=== PATIENT | female | born 1980 | race Two or more races ===

== ENCOUNTER 2019-07-03 11:22 | Emergency (ER) | payer BC ==
[~2019-07-03] VITALS: Ht 162.6 cm; Wt 150.0 kg
--- NOTE | 2019-07-03 12:09 | PHYS DOC ---
Adult General Chief Complaint Chief Complaint: VAGINAL BLEEDING [facility] HPI Patient is a 39 year old female who presents with vaginal bleeding abdominal pain is been ongoing since Wednesday. The patient's last menstrual period was 1219. Denies nausea, vomiting, diarrhea. Is wearing a brief due to the vaginal bleeding. [id number]. No OB care so far during this . Complete ROS were reviewed and found to be within normal limits, except as documented in the HPI Current Medications Current Medications Current Medications Medications (Trade) Dose Ordered Sig/Jena Start Time Stop Time Status Last Admin Dose Admin Ondansetron HCl (Zofran) 4 mg 1X ONCE 07/03/19 12:15 07/03/19 12:16 DC 07/03/19 12:30 4 MG Sodium Chloride 1,000 ml @ 1,000 mls/hr 1X ONCE 07/03/19 12:15 07/03/19 13:14 DC 07/03/19 12:28 1,000 MLS/HR Allergies Allergies Allergies Coded Allergies Type Severity Reaction Last Updated Verified No Known Drug Allergies 07/03/19 No Physical Exam Physical Exam Constitutional: Well developed, well nourished, no acute distress, non-toxic appearance. [] HENT: Normocephalic, atraumatic, bilateral external ears normal, oropharynx moist, no oral exudates, nose normal. [] Abdomen: Bowel sounds normal, soft, lower abd tenderness, no masses, no pulsatile masses. [] Neurologic: Alert and oriented X 3, normal motor function, normal sensory function, no focal deficits noted. [] Psychologic: Affect normal, judgement normal, mood normal. [] Current Patient Data Vital Signs Vital Signs Date Time Temp Pulse Resp B/P (MAP) Pulse Ox O2 Delivery O2 Flow Rate FiO2 07/03/19 11:34 98.6 65 18 112/70 (84) 100 Room Air 98.6 Lab Values Laboratory Tests Test 07/03/19 11:41 07/03/19 12:00 07/03/19 12:10 POC Urine HCG, Qualitative Hcg positive (Negative) Urine Collection Type Unknown Urine Color Yellow Urine Clarity Clear Urine pH 6.0 (<5.0-8.0) Urine Specific Leigh 1.020 (1.000-1.030) Urine Protein Negative mg/dL (NEG-TRACE) Urine Glucose (UA) Negative mg/dL (NEG) Urine Ketones (Stick) Negative mg/dL (NEG) Urine Blood Moderate (NEG) Urine Nitrite Negative (NEG) Urine Bilirubin Negative (NEG) Urine Urobilinogen Dipstick 1.0 mg/dL (0.2 mg/dL) Urine Leukocyte Esterase Small (NEG) Urine RBC >40 /HPF (0-2) Urine WBC 1-4 /HPF (0-4) Urine Squamous Epithelial Cells Mod /LPF Urine Bacteria 0 /HPF (0-FEW) Urine Mucus Marked /LPF White Blood Count 5.6 x10^3/uL (4.0-11.0) Red Blood Count 3.68 x10^6/uL (3.50-5.40) Hemoglobin 11.3 g/dL (12.0-15.5) L Hematocrit 32.9 % (36.0-47.0) L Mean Corpuscular Volume 90 fL (79-100) Mean Corpuscular Hemoglobin 31 pg (25-35) Mean Corpuscular Hemoglobin Concent 34 g/dL (31-37) Red Cell Distribution Width 13.5 % (11.5-14.5) Platelet Count 203 x10^3/uL (140-400) Neutrophils (%) (Auto) 62 % (31-73) Lymphocytes (%) (Auto) 22 % (24-48) L Monocytes (%) (Auto) 9 % (0-9) Eosinophils (%) (Auto) 6 % (0-3) H Basophils (%) (Auto) 0 % (0-3) Neutrophils # (Auto) 3.5 x10^3/uL (1.8-7.7) Lymphocytes # (Auto) 1.3 x10^3/uL (1.0-4.8) Monocytes # (Auto) 0.5 x10^3/uL (0.0-1.1) Eosinophils # (Auto) 0.3 x10^3/uL (0.0-0.7) Basophils # (Auto) 0.0 x10^3/uL (0.0-0.2) Maternal Serum HCG Beta Subunit 2882 mIU/mL (0-5) H Sodium Level 140 mmol/L (136-145) Potassium Level 4.1 mmol/L (3.5-5.1) Chloride Level 105 mmol/L (98-107) Carbon Dioxide Level 26 mmol/L (21-32) Anion Gap 9 (6-14) Blood Urea Nitrogen 7 mg/dL (7-20) Creatinine 0.6 mg/dL (0.6-1.0) Estimated GFR (Cockcroft-Gault) 111.9 BUN/Creatinine Ratio 12 (6-20) Glucose Level 95 mg/dL (70-99) Calcium Level 9.0 mg/dL (8.5-10.1) Total Bilirubin 0.7 mg/dL (0.2-1.0) Aspartate Amino Transferase (AST) 12 U/L (15-37) L Alanine Aminotransferase (ALT) 8 U/L (14-59) L Alkaline Phosphatase 57 U/L (46-116) Total Protein 7.3 g/dL (6.4-8.2) Albumin 3.6 g/dL (3.4-5.0) Albumin/Globulin Ratio 1.0 (1.0-1.7) Laboratory Tests 07/03/19 12:10 Laboratory Tests 07/03/19 12:10 EKG EKG [] Radiology/Procedures Radiology/Procedures []IMAGING REPORT Signed PATIENT: AZAR JAVIER ACCOUNT: [id number] : 1980 LOCATION: ER AGE: 39 SEX: F EXAM STATUS: REG ER ORD. PHYSICIAN: UCHE JANSEN APRN REASON: vaginal bleeding, abd pain in LMP 04/06 PROCEDURE: OB < 14 WKS ADDENDUM Addendum: There is a voice recognition error in the original report. The estimated gestational age is 9 weeks and 0 days and not 19 weeks. Electronically signed by: Jen Juarez MD (07/03/2019 2:09 PM) [id number] DICTATED AND SIGNED BY: JEN JUAREZ MD DATE: 07/03/19 1409 CC: UCHE JANSEN APRN; NO PCP ~ INDICATION: Vaginal bleeding and . COMPARISON: None. TECHNIQUE: Grayscale and color ultrasound images uterus and adnexa. Transabdominal images obtained. FINDINGS: Uterus: 122 x 59 x 86 mm. Intrauterine gestational sac is identified with a pole. There is a hypoechoic region adjacent measuring approximately 13 x 27 mm. crown-rump length is 24 mm. No definite heartbeat is seen. Vascular flow is seen to the right maternal ovary. Right Ovary: 59 x 70 x 48 mm. 45 x 38 mm cyst of right ovary. Left ovary is suggestive by bowel gas. IMPRESSION: * Intrauterine gestational sac is identified with a pole with estimated gestational age of 19 weeks and 0 days. No heartbeat is seen. This raises the concern for early failure. * Hypoechoic region adjacent to the gestational sac likely from subchorionic hematoma. * Right ovarian cyst. Electronically signed by: Jen Juarez MD (07/03/2019 1:59 PM) [id number] DICTATED and SIGNED BY: JEN JUAREZ MD DATE: 07/03/19 4728 Course & Med Decision Making Course & Med Decision Making Pertinent Labs and Imaging studies reviewed. (See chart for details) We will get labs and ultrasound give supportive care. IMPRESSION: * Intrauterine gestational sac is identified with a pole with estimated gestational age of 19 weeks and 0 days. No heartbeat is seen. This raises the concern for early failure. * Hypoechoic region adjacent to the gestational sac likely from subchorionic hematoma. * Right ovarian cyst. Electronically signed by: Jen Juarez MD (07/03/2019 1:59 PM) [id number] Dragon Disclaimer Dragon Disclaimer This electronic medical record was generated, in whole or in part, using a voice recognition dictation system. Departure Departure Impression: Primary Impression: Threatened miscarriage in early Disposition: 01 HOME, SELF-CARE Condition: STABLE Referrals: NO PCP (PCP) LUCIA LANGSTON MD Patient Instructions: Threatened Miscarriage Additional Instructions: Thank you for visiting [facility]. We appreciate you trusting us with your care. If any additional problems come up don't hesitate to return to visit us. Please follow up with your primary care provider so they can plan additional care if needed and know about the problem that you had. If symptoms worsen come back to the Emergency Department. Any concerning symptoms that start such as chest pain, shortness of air, weakness or numbness on one side of the body, running high fevers or any other concerning symptoms return to the ER. Please follow-up with OB in 3 days to have your beta hCG levels trended. Your HCG is 2882 today. You are O+ UCHE JANSEN APRN Jul 03, 2019 12:09
[2019-07-03] MEDS ORDERED: IV NORMAL SALINE 1000ML BAG 1,000 ML IV ONE (12:15)
[2019-07-03] MEDS ORDERED: ONDANSETRON PF 4 MG/2 ML VIAL. IV ONE (12:15)
[2019-07-03 12:35] LABS: BASO % 0 % (0-3); EOS # 0.3 x10^3/uL (0.0-0.7); EOS % 6 % (0-3); HEMATOCRIT 32.9 % (36.0-47.0); HEMOGLOBIN 11.3 g/dL (12.0-15.5); LYMPH # 1.3 x10^3/uL (1.0-4.8); LYMPH % 22 % (24-48); MEAN CORPUSCULAR HEMOGLOBIN 31 pg (25-35); MEAN CORPUSCULAR HGB CONC 34 g/dL (31-37); MEAN CORPUSCULAR VOLUME 90 fL (79-100); MONO # 0.5 x10^3/uL (0.0-1.1); MONO % 9 % (0-9); NEUT # 3.5 x10^3/uL (1.8-7.7); NEUT % 62 % (31-73); PLATELET COUNT 203 x10^3/uL (140-400); RED BLOOD COUNT 3.68 x10^6/uL (3.50-5.40); RED CELL DISTRIBUTION WIDTH 13.5 % (11.5-14.5); WHITE BLOOD COUNT 5.6 x10^3/uL (4.0-11.0)
[2019-07-03 12:36] LABS: BILIRUBIN,URINE NEGATIVE (NEG); CLARITY,URINE CLEAR; COLOR,URINE YELLOW; NITRITE,URINE NEGATIVE (NEG); PROTEIN,URINE NEGATIVE (NEG-TRACE)
[2019-07-03 12:41] LABS: CREATININE 0.6 mg/dL (0.6-1.0); GFR 111.9; POTASSIUM 4.1 mmol/L (3.5-5.1)
[2019-07-03 12:46] LABS: ALBUMIN 3.6 g/dL (3.4-5.0); TOTAL BILIRUBIN 0.7 mg/dL (0.2-1.0); TOTAL PROTEIN 7.3 g/dL (6.4-8.2)
[2019-07-03 12:46] LABS: SQUAMOUS EPITHELIAL CELL,UR MOD /LPF
[2019-07-03 12:47] LABS: BACTERIA,URINE 0 /HPF (0-FEW); RBC,URINE >40 /HPF (0-2)
--- NOTE | 2019-07-03 14:02 | RAD ---
INDICATION: Vaginal bleeding and . COMPARISON: None. TECHNIQUE: Grayscale and color ultrasound images uterus and adnexa. Transabdominal images obtained. FINDINGS: Uterus: 122 x 59 x 86 mm. Intrauterine gestational sac is identified with a pole. There is a hypoechoic region adjacent measuring approximately 13 x 27 mm. crown-rump length is 24 mm. No definite heartbeat is seen. Vascular flow is seen to the right maternal ovary. Right Ovary: 59 x 70 x 48 mm. 45 x 38 mm cyst of right ovary. Left ovary is suggestive by bowel gas. IMPRESSION: * Intrauterine gestational sac is identified with a pole with estimated gestational age of 19 weeks and 0 days. No heartbeat is seen. This raises the concern for early failure. * Hypoechoic region adjacent to the gestational sac likely from subchorionic hematoma. * Right ovarian cyst. Electronically signed by: Jesus Ponce MD (07/03/2019 1:59 PM) [id number]
[2019-07-03 14:43] VITALS: BP 99/63
== END 2019-07-03 15:12 | disposition home or self-care (01) ==
LOC: ER 11:22
DX: O20.0 Threatened abortion (principal); O34.82 Maternal care for other abnormalities of pelvic organs, second trimester; N83.201 Unspecified ovarian cyst, right side; Z3A.19 19 weeks gestation of pregnancy
CPT/HCPCS: 36415; 76801; 80053; 81001; 81025; 84702; 85025; 86900; 86901; 87086; 96374; 99285; J2405; J7030

== ENCOUNTER 2019-08-10 15:47 | Emergency (ER) | payer BC ==
[~2019-08-10] VITALS: Ht 167.6 cm; Wt 64.0 kg
[2019-08-10 16:54] LABS: BASO % 0 % (0-3); EOS # 0.4 x10^3/uL (0.0-0.7); EOS % 7 % (0-3); HEMATOCRIT 35.4 % (36.0-47.0); LYMPH # 1.6 x10^3/uL (1.0-4.8); LYMPH % 28 % (24-48); MEAN CORPUSCULAR HEMOGLOBIN 30 pg (25-35); MEAN CORPUSCULAR HGB CONC 34 g/dL (31-37); MEAN CORPUSCULAR VOLUME 90 fL (79-100); MONO # 0.5 x10^3/uL (0.0-1.1); MONO % 9 % (0-9); NEUT % 55 % (31-73); PLATELET COUNT 191 x10^3/uL (140-400); RED BLOOD COUNT 3.95 x10^6/uL (3.50-5.40); RED CELL DISTRIBUTION WIDTH 13.6 % (11.5-14.5); WHITE BLOOD COUNT 5.5 x10^3/uL (4.0-11.0)
[2019-08-10 16:55] LABS: BILIRUBIN,URINE NEGATIVE (NEG); CLARITY,URINE CLEAR; NITRITE,URINE NEGATIVE (NEG); PH,URINE 6.5 (<5.0-8.0); PROTEIN,URINE NEGATIVE (NEG-TRACE); UROBILINOGEN,URINE 0.2 mg/dL (0.2 mg/dL)
[2019-08-10 17:03] LABS: COLOR,URINE STRAW
[2019-08-10 17:04] LABS: CALCIUM 8.7 mg/dL (8.5-10.1); CREATININE 0.5 mg/dL (0.6-1.0); GFR 138.1; POTASSIUM 3.6 mmol/L (3.5-5.1)
[2019-08-10 17:07] LABS: BACTERIA,URINE FEW /HPF (0-FEW); SQUAMOUS EPITHELIAL CELL,UR FEW /LPF; WBC,URINE 0 /HPF (0-4)
[2019-08-10 17:10] LABS: ALBUMIN 3.8 g/dL (3.4-5.0); TOTAL BILIRUBIN 0.5 mg/dL (0.2-1.0); TOTAL PROTEIN 7.5 g/dL (6.4-8.2)
--- NOTE | 2019-08-10 17:12 | PHYS DOC ---
Past Medical History Past Medical History: No Pertinent History Past Surgical History: No Surgical History Smoking Status: Never Smoker Alcohol Use: None General Adult EDM: Chief Complaint: VAGINAL BLEEDING HPI: HPI: Patient is a 39 year old FEMALE who presents with states for most the whole she has had bleeding that is scant. She states she only has to wear 1 pad a day. She denies dysuria, abdominal pain, nausea, vomiting, fever, back pain, abnormal vaginal discharge, dizziness, headache. She does see a OB doctor but she cannot read her the name of the OB doctor or the clinics name. She states OB doctor just told her to go to the emergency room when bleeding occurs. This is the patient's eighth baby with no miscarriages. She denies any pain. Review of Systems: Review of Systems: : Denies dysuria. Vaginal bleeding[] Heart Score: Risk Factors: Risk Factors: DM, Current or recent (<one month) smoker, HTN, HLP, family history of CAD, obesity. Risk Scores: Score 0 - 3: 2.5% MACE over next 6 weeks - Discharge Home Score 4 - 6: 20.3% MACE over next 6 weeks - Admit for Clinical Observation Score 7 - 10: 72.7% MACE over next 6 weeks - Early Invasive Strategies Allergies: Allergies: Allergies Coded Allergies Type Severity Reaction Last Updated Verified No Known Drug Allergies 07/03/19 No Physical Exam: PE: Constitutional: Well developed, well nourished, no acute distress, non-toxic appearance. [] HENT: Normocephalic, atraumatic, bilateral external ears normal, oropharynx moist, no oral exudates, nose normal. [] Eyes: PERRLA, EOMI, conjunctiva normal, no discharge. [] Neck: Normal range of motion, no tenderness, supple, no stridor. [] Cardiovascular:Heart rate regular rhythm, no murmur [] Lungs & Thorax: Bilateral breath sounds clear to auscultation [] Abdomen: Bowel sounds normal, soft, no tenderness, no masses, no pulsatile masses. [] Skin: Warm, dry, no erythema, no rash. [] Back: No tenderness, no CVA tenderness. [] Extremities: No tenderness, no cyanosis, no clubbing, ROM intact, no edema. [] Neurologic: Alert and oriented X 3, normal motor function, normal sensory function, no focal deficits noted. [] Psychologic: Affect normal, judgement normal, mood normal. [] Normal Physical Exam Current Patient Data: Labs: Laboratory Tests Test 08/10/19 16:25 White Blood Count 5.5 x10^3/uL (4.0-11.0) Red Blood Count 3.95 x10^6/uL (3.50-5.40) Hemoglobin 12.0 g/dL (12.0-15.5) Hematocrit 35.4 % (36.0-47.0) L Mean Corpuscular Volume 90 fL (79-100) Mean Corpuscular Hemoglobin 30 pg (25-35) Mean Corpuscular Hemoglobin Concent 34 g/dL (31-37) Red Cell Distribution Width 13.6 % (11.5-14.5) Platelet Count 191 x10^3/uL (140-400) Neutrophils (%) (Auto) 55 % (31-73) Lymphocytes (%) (Auto) 28 % (24-48) Monocytes (%) (Auto) 9 % (0-9) Eosinophils (%) (Auto) 7 % (0-3) H Basophils (%) (Auto) 0 % (0-3) Neutrophils # (Auto) 3.0 x10^3/uL (1.8-7.7) Lymphocytes # (Auto) 1.6 x10^3/uL (1.0-4.8) Monocytes # (Auto) 0.5 x10^3/uL (0.0-1.1) Eosinophils # (Auto) 0.4 x10^3/uL (0.0-0.7) Basophils # (Auto) 0.0 x10^3/uL (0.0-0.2) Sodium Level 141 mmol/L (136-145) Potassium Level 3.6 mmol/L (3.5-5.1) Chloride Level 107 mmol/L (98-107) Carbon Dioxide Level 23 mmol/L (21-32) Anion Gap 11 (6-14) Blood Urea Nitrogen 8 mg/dL (7-20) Creatinine 0.5 mg/dL (0.6-1.0) L Estimated GFR (Cockcroft-Gault) 138.1 BUN/Creatinine Ratio 16 (6-20) Glucose Level 94 mg/dL (70-99) Calcium Level 8.7 mg/dL (8.5-10.1) Total Bilirubin Pending Aspartate Amino Transferase (AST) Pending Alanine Aminotransferase (ALT) Pending Alkaline Phosphatase Pending Total Protein Pending Albumin Pending Albumin/Globulin Ratio Pending Laboratory Tests 08/10/19 16:25 Laboratory Tests 08/10/19 16:25 EKG: EKG: [] Radiology/Procedures: Radiology/Procedures: [] Impression: [facility] [address] [place] [address] IMAGING REPORT Signed PATIENT: AZAR JAVIER ACCOUNT: [id number] : 1980 LOCATION: ER AGE: 39 SEX: F EXAM STATUS: REG ER ORD. PHYSICIAN: MANUELITO ENG APRN REASON: vaginal bleeding in PROCEDURE: PREG MORE THAN OR EQ TO 14 WKS PREG MORE THAN OR EQ TO 14 WKS History: Vaginal bleeding in Comparison: July 03, 2019 Findings: Multiple transvaginal sonographic images of the pelvis are submitted. There is a single intrauterine gestational sac and identifiable pole although again there is no demonstrable cardiac activity on M-mode analysis or color Doppler imaging. [place]-rump length measurement of 2.15 cm corresponds with 8 weeks 6 days. Adjusted ultrasound age is 8 weeks 6 days with estimated delivery date of 03/15/2020 (previously 9 weeks 0 days with estimated delivery date 02/05/2020). LMP age 18 weeks 3 days with estimated delivery date of 01/08/2020. There are again foci of hypoechogenicity near gestational sac likely due to sequela of subchorionic hemorrhage, largest focus about 3.8 cm in size. Uterus measured about 10.5 x 7.7 cm. Left ovary measured 4.9 x 3.6 x 3.4 cm. There is a hypoechoic lesion of the left ovary about 3.9 x 2.7 x 2.7 cm with increased through transmission. There is normal low resistance vascularity of the left ovary. Right ovary measured 3.4 x 1.9 x 2.6 m. There is a focus of hypoechogenicity of the right ovary about 1.9 x 1.2 x 1.5 cm in size. There is normal color flow and low resistance vascularity of the right ovary. Cervix measured 4 cm in length. Impression: 1. There is again intrauterine gestational sac with identifiable pole although again no demonstrable cardiac activity, evidence of demise. There are foci of subchorionic hemorrhage about the gestational sac. 2. There is again left ovarian cyst, also small right ovarian cyst. Electronically signed by: Compa Camilo MD (08/10/2019 6:28 PM) [facility] DICTATED and SIGNED BY: COMPA CAMILO MD DATE: 08/10/191827 Course & Med Decision Making: Course & Med Decision Making Pertinent Labs and Imaging studies reviewed. (See chart for details) Abdomen is soft andnontender. Skin pink warm and dry. Alert and oriented. No extremity edema. Normal Physical Exam. Vital signs normal. Patient is O+. Pelvic Exam: Fish Bait Picker present, Cervical OS closed Abdomen: Nontender External Genitalia: Normal Skin Speculum: Normal vaginal mucosa, scant bloody cervical discharge Bimanual: No adnexal masses or tenderness, No CMT 07/03/19 US showed no heart tone. Todays US shows Impression: 1. There is again intrauterine gestational sac with identifiable pole although again no demonstrable cardiac activity, evidence of demise. There are foci of subchorionic hemorrhage about the gestational sac. 2. There is again left ovarian cyst, also small right ovarian cyst. Beta Serum has significantly dropped from 07/02. I have spoken with Dr Dutton who states she needs to follow up with her OB as soon as possible. He states nothing need to be done emergent. [] Viv Disclaimer: Viv Disclaimer: This electronic medical record was generated, in whole or in part, using a voice recognition dictation system. Departure Departure Impression: Primary Impression: Incomplete miscarriage Disposition: HOME, SELF-CARE Condition: STABLE Referrals: NO PCP (PCP) Patient Instructions: Incomplete Miscarriage Additional Instructions: Follow up wit your doctor as soon as possible. You have miscarried. If you begin having severe pain or going through more than 1 pad a hour it is important to come back to the emergency room. Call your OB doctor tomorrow and tell them you have miscarried and need to be seen. MANUELITO ENG APRN Aug 10, 2019 17:12
--- NOTE | 2019-08-10 18:31 | RAD ---
PREG MORE THAN OR EQ TO 14 WKS History: Vaginal bleeding in Comparison: July 03, 2019 Findings: Multiple transvaginal sonographic images of the pelvis are submitted. There is a single intrauterine gestational sac and identifiable pole although again there is no demonstrable cardiac activity on M-mode analysis or color Doppler imaging. [place]-rump length measurement of 2.15 cm corresponds with 8 weeks 6 days. Adjusted ultrasound age is 8 weeks 6 days with estimated delivery date of 03/15/2020 (previously 9 weeks 0 days with estimated delivery date 02/05/2020). LMP age 18 weeks 3 days with estimated delivery date of 01/08/2020. There are again foci of hypoechogenicity near gestational sac likely due to sequela of subchorionic hemorrhage, largest focus about 3.8 cm in size. Uterus measured about 10.5 x 7.7 cm. Left ovary measured 4.9 x 3.6 x 3.4 cm. There is a hypoechoic lesion of the left ovary about 3.9 x 2.7 x 2.7 cm with increased through transmission. There is normal low resistance vascularity of the left ovary. Right ovary measured 3.4 x 1.9 x 2.6 m. There is a focus of hypoechogenicity of the right ovary about 1.9 x 1.2 x 1.5 cm in size. There is normal color flow and low resistance vascularity of the right ovary. Cervix measured 4 cm in length. Impression: 1. There is again intrauterine gestational sac with identifiable pole although again no demonstrable cardiac activity, evidence of demise. There are foci of subchorionic hemorrhage about the gestational sac. 2. There is again left ovarian cyst, also small right ovarian cyst. Electronically signed by: Guille Cheng MD (08/10/2019 6:28 PM) [facility]
[2019-08-10 18:37] VITALS: BP 100/59
== END 2019-08-10 19:13 | disposition home or self-care (01) ==
LOC: ER 15:47
DX: O03.4 Incomplete spontaneous abortion without complication (principal)
CPT/HCPCS: 36415; 76805; 80053; 81001; 84702; 85025; 99284-25

== ENCOUNTER 2020-04-18 00:05 | Observation (INO) | payer SELFPAY ==
[~2020-04-18] VITALS: Ht 157.5 cm; Wt 61.3 kg
[2020-04-18] VITALS (13 sets, daily range): BP systolic 78–121; BP diastolic 41–61
[2020-04-18 00:49] LABS: BASO # 0.1 x10^3/uL (0.0-0.2); BASO % 1 % (0-3); EOS # 0.4 x10^3/uL (0.0-0.7); EOS % 4 % (0-3); HEMATOCRIT 28.6 % (36.0-47.0); HEMOGLOBIN 9.5 g/dL (12.0-15.5); LYMPH # 2.7 x10^3/uL (1.0-4.8); LYMPH % 26 % (24-48); MEAN CORPUSCULAR HEMOGLOBIN 30 pg (25-35); MEAN CORPUSCULAR HGB CONC 33 g/dL (31-37); MEAN CORPUSCULAR VOLUME 91 fL (79-100); MONO # 0.8 x10^3/uL (0.0-1.1); MONO % 8 % (0-9); NEUT # 6.2 x10^3/uL (1.8-7.7); NEUT % 62 % (31-73); RED BLOOD COUNT 3.15 x10^6/uL (3.50-5.40); RED CELL DISTRIBUTION WIDTH 13.9 % (11.5-14.5); WHITE BLOOD COUNT 10.1 x10^3/uL (4.0-11.0)
[2020-04-18 00:56] LABS: CALCIUM 8.6 mg/dL (8.5-10.1); CREATININE 0.8 mg/dL (0.6-1.0); GFR 80.3; POTASSIUM 3.1 mmol/L (3.5-5.1)
[2020-04-18] MEDS ORDERED: IV NORMAL SALINE 1000ML BAG 1,000 ML IV ONE ×2 (01:00→03:15)
[2020-04-18 01:01] LABS: ALBUMIN 3.4 g/dL (3.4-5.0); TOTAL BILIRUBIN 0.4 mg/dL (0.2-1.0); TOTAL PROTEIN 6.8 g/dL (6.4-8.2)
[2020-04-18 01:18] LABS: PLATELET COUNT 228 x10^3/uL (140-400)
--- NOTE | 2020-04-18 02:18 | RAD ---
ADDENDUM #1 Addendum: In the body of the report the statement "crown-rump length is identified" should state pole is not visualized. End of addendum: Electronically signed by: Jade Babin MD (04/18/2020 6:27 AM) [facility] ORIGINAL REPORT US PRE HYSTEROSALPINGOGRAM: 04/18/2020 1:59 AM INDICATION: 39 years old Female. Vaginal bleeding. COMPARISON: None. TECHNIQUE: Transabdominal and transvaginal sonographic evaluation of the pelvis was performed. Yi elian, color Doppler and spectral waveform analysis were utilized. FINDINGS: UTERUS: No gestational sac. [place]-rump length is identified. Size: 9.3 x 5.1 cm. Masses: None. Endometrium: 26 mm. No suspicious vascularity is identified. RIGHT OVARY: 3.1 x 2.1 x 1.0 cm. Ovary is normal in appearance. LEFT OVARY: 3.2 x 2.0 x 1.7 cm. Ovary is normal in appearance. Arterial and venous waveform are identified within the ovaries bilaterally at the time of imaging. FREE FLUID: There is a trace amount of free fluid within the pelvis, physiologic in amount. URINARY BLADDER: Unremarkable. IMPRESSION: No intrauterine gestation is identified. Correlate with beta-hCG to assess for early versus failure or ectopic . Perfusion is noted to the ovaries bilaterally at the time of imaging. Electronically signed by: Jade Babin MD (04/18/2020 2:16 AM) [facility]
[2020-04-18] MEDS ORDERED: MORPHINE SULFATE 2 MG/ML VIAL. IV PRN ×2 (03:45→10:45)
[2020-04-18] MEDS ORDERED: ONDANSETRON PF 4 MG/2 ML VIAL. IV PRN ×2 (03:45→10:45)
--- NOTE | 2020-04-18 03:48 | PHYS DOC ---
Past Medical History Past Medical History: No Pertinent History Past Surgical History: No Surgical History Smoking Status: Never Smoker Alcohol Use: None Adult General Chief Complaint Chief Complaint: VAGINAL BLEEDING HPI HPI Patient is a 39 year old 3 months by last menstrual period who presents emergency department for new onset of vaginal bleeding. Patient states approximate 2 hours prior to arrival she noted new onset of suprapubic abdominal pain and tenderness. Shortly afterwards a large amount of vaginal bleeding. Did complain of some weakness but denies any dizziness, lightheadedness, fever, chills, chest pain or shortness of breath. Denies any history of similar symptoms. Denies any issues with her prior pregnancies. Patient speaks Swahili and a respiratory assistant was provided Review of Systems Review of Systems Constitutional: Denies fever or chills [] Eyes: Denies change in visual acuity, redness, or eye pain [] HENT: Denies nasal congestion or sore throat [] Respiratory: Denies cough or shortness of breath [] Cardiovascular: No additional information not addressed in HPI [] GI: Denies abdominal pain, nausea, vomiting, bloody stools or diarrhea [] : Denies dysuria or hematuria [] Musculoskeletal: Denies back pain or joint pain [] Integument: Denies rash or skin lesions [] Neurologic: Denies headache, focal weakness or sensory changes [] Endocrine: Denies polyuria or polydipsia [] All other systems were reviewed and found to be within normal limits, except as documented in this note. Current Medications Current Medications Current Medications Medications (Trade) Dose Ordered Sig/Jena Start Time Stop Time Status Last Admin Dose Admin Morphine Sulfate (Morphine Sulfate) 2 mg PRN Q2HR PRN 04/18/20 03:45 04/19/20 03:44 UNV Ondansetron HCl (Zofran) 4 mg PRN Q8HRS PRN 04/18/20 03:45 04/19/20 03:44 UNV Sodium Chloride 1,000 ml @ 1,000 mls/hr 1X ONCE 04/18/20 03:15 04/18/20 04:14 04/18/20 03:00 1,000 MLS/HR Allergies Allergies Allergies Coded Allergies Type Severity Reaction Last Updated Verified No Known Drug Allergies 07/03/19 No Physical Exam Physical Exam Constitutional: Well developed, well nourished, no acute distress, non-toxic appearance. [] HENT: Normocephalic, atraumatic, bilateral external ears normal, oropharynx moist, no oral exudates, nose normal. [] Eyes: PERRLA, EOMI, conjunctiva normal, no discharge. [] Neck: Normal range of motion, no tenderness, supple, no stridor. [] Cardiovascular:Heart rate regular rhythm, no murmur [] Lungs & Thorax: Bilateral breath sounds clear to auscultation [] Abdomen: Bowel sounds normal, soft, no tenderness, no masses, no pulsatile masses. [] Skin: Warm, dry, no erythema, no rash. [] Back: No tenderness, no CVA tenderness. [] Extremities: No tenderness, no cyanosis, no clubbing, ROM intact, no edema. [] Neurologic: Alert and oriented X 3, normal motor function, normal sensory function, no focal deficits noted. [] Psychologic: Affect normal, judgement normal, mood normal. [] Current Patient Data Vital Signs Vital Signs Date Time Temp Pulse Resp B/P (MAP) Pulse Ox O2 Delivery O2 Flow Rate FiO2 04/18/20 00:45 98.0 94 24 93/65 (74) 98 Nasal Cannula 3.0 98.0 Lab Values Laboratory Tests Test 04/18/20 00:20 White Blood Count 10.1 x10^3/uL (4.0-11.0) Red Blood Count 3.15 x10^6/uL (3.50-5.40) L Hemoglobin 9.5 g/dL (12.0-15.5) L Hematocrit 28.6 % (36.0-47.0) L Mean Corpuscular Volume 91 fL (79-100) Mean Corpuscular Hemoglobin 30 pg (25-35) Mean Corpuscular Hemoglobin Concent 33 g/dL (31-37) Red Cell Distribution Width 13.9 % (11.5-14.5) Platelet Count 228 x10^3/uL (140-400) Neutrophils (%) (Auto) 62 % (31-73) Lymphocytes (%) (Auto) 26 % (24-48) Monocytes (%) (Auto) 8 % (0-9) Eosinophils (%) (Auto) 4 % (0-3) H Basophils (%) (Auto) 1 % (0-3) Neutrophils # (Auto) 6.2 x10^3/uL (1.8-7.7) Lymphocytes # (Auto) 2.7 x10^3/uL (1.0-4.8) Monocytes # (Auto) 0.8 x10^3/uL (0.0-1.1) Eosinophils # (Auto) 0.4 x10^3/uL (0.0-0.7) Basophils # (Auto) 0.1 x10^3/uL (0.0-0.2) Maternal Serum HCG Beta Subunit 4872 mIU/mL (0-5) H Sodium Level 137 mmol/L (136-145) Potassium Level 3.1 mmol/L (3.5-5.1) L Chloride Level 104 mmol/L (98-107) Carbon Dioxide Level 20 mmol/L (21-32) L Anion Gap 13 (6-14) Blood Urea Nitrogen 10 mg/dL (7-20) Creatinine 0.8 mg/dL (0.6-1.0) Estimated GFR (Cockcroft-Gault) 80.3 BUN/Creatinine Ratio 13 (6-20) Glucose Level 184 mg/dL (70-99) H Calcium Level 8.6 mg/dL (8.5-10.1) Total Bilirubin 0.4 mg/dL (0.2-1.0) Aspartate Amino Transferase (AST) 19 U/L (15-37) Alanine Aminotransferase (ALT) 15 U/L (14-59) Alkaline Phosphatase 43 U/L (46-116) L Total Protein 6.8 g/dL (6.4-8.2) Albumin 3.4 g/dL (3.4-5.0) Albumin/Globulin Ratio 1.0 (1.0-1.7) Laboratory Tests 04/18/20 00:20 Laboratory Tests 04/18/20 00:20 EKG EKG [] Radiology/Procedures Radiology/Procedures [] Course & Med Decision Making Course & Med Decision Making Pertinent Labs and Imaging studies reviewed. (See chart for details) 31-year-old female presents emergency department with acute onset of vaginal bleeding likely secondary to spontaneous . Pelvic exam was performed which did demonstrate a small cervical bleed without a other evidence of bleeding. Appears to be at this time. Will obtain basic labs with a CBC to make sure there is no acute anemia as well as obtain an ultrasound to look for retained products of conception 0340 -labs do demonstrate any acute anemia approximately 9 but it is unknown what the patient's baseline is. Patient also noted to be hypotensive since she arrived was given 2 L of normal saline. Concern for considerable ongoing hemorrhage although most of it still appears to have been improved. At this time the patient is stable at this time will plan to admit the patient to the labor and delivery floor Dragon Disclaimer Dragon Disclaimer This electronic medical record was generated, in whole or in part, using a voice recognition dictation system. Departure Departure Impression: Primary Impression: Spontaneous Disposition: ADMITTED INPT THIS HOSP Condition: GUARDED Referrals: NO PCP (PCP) ROMEO RAMIREZ MD Apr 18, 2020 03:48
[2020-04-18 06:11] LABS: RED BLOOD COUNT 2.2 x10^6/uL (3.50-5.40); RED CELL DISTRIBUTION WIDTH 13.8 % (11.5-14.5); WHITE BLOOD COUNT 13.4 x10^3/uL (4.0-11.0)
[2020-04-18 06:16] LABS: HEMATOCRIT 19.8 % (36.0-47.0); HEMOGLOBIN 6.6 g/dL (12.0-15.5)
--- NOTE | 2020-04-18 10:34 | PDOC ---
GENERAL General: 39 yrs old lady admitted for with Bleeding Lmp ? probably 2 months VITAL SIGNS Vital Signs/I&O: Vital Signs Date Time Temp Pulse Resp B/P (MAP) Pulse Ox O2 Delivery O2 Flow Rate FiO2 04/18/20 08:00 Room Air 16.0 04/18/20 07:23 98.8 78 18 91/55 (67) 96 98.8 I & O 04/17/20 04/17/20 04/18/20 15:00 23:00 07:00 Intake Total 1000 ml Balance 1000 ml ALLERGIES Allergies: Allergies Coded Allergies Type Severity Reaction Last Updated Verified No Known Drug Allergies 07/03/19 No MEDS Medications: Current Medications Medications (Trade) Dose Ordered Sig/Jena Route PRN Reason Start Time Stop Time Status Last Admin Dose Admin Sodium Chloride 1,000 ml @ 1,000 mls/hr 1X ONCE IV 04/18/20 01:00 04/18/20 01:59 DC 04/18/20 00:38 Sodium Chloride 1,000 ml @ 1,000 mls/hr 1X ONCE IV 04/18/20 03:15 04/18/20 04:14 DC 04/18/20 03:00 LAB Lab: Laboratory Tests Test 04/18/20 00:20 04/18/20 05:49 White Blood Count 10.1 x10^3/uL (4.0-11.0) 13.4 x10^3/uL (4.0-11.0) H Red Blood Count 3.15 x10^6/uL (3.50-5.40) L 2.20 x10^6/uL (3.50-5.40) L Hemoglobin 9.5 g/dL (12.0-15.5) L 6.6 g/dL (12.0-15.5) *L Hematocrit 28.6 % (36.0-47.0) L 19.8 % (36.0-47.0) *L Mean Corpuscular Volume 91 fL (79-100) 90 fL (79-100) Mean Corpuscular Hemoglobin 30 pg (25-35) 30 pg (25-35) Mean Corpuscular Hemoglobin Concent 33 g/dL (31-37) 33 g/dL (31-37) Red Cell Distribution Width 13.9 % (11.5-14.5) 13.8 % (11.5-14.5) Platelet Count 228 x10^3/uL (140-400) 163 x10^3/uL (140-400) Neutrophils (%) (Auto) 62 % (31-73) Lymphocytes (%) (Auto) 26 % (24-48) Monocytes (%) (Auto) 8 % (0-9) Eosinophils (%) (Auto) 4 % (0-3) H Basophils (%) (Auto) 1 % (0-3) Neutrophils # (Auto) 6.2 x10^3/uL (1.8-7.7) Lymphocytes # (Auto) 2.7 x10^3/uL (1.0-4.8) Monocytes # (Auto) 0.8 x10^3/uL (0.0-1.1) Eosinophils # (Auto) 0.4 x10^3/uL (0.0-0.7) Basophils # (Auto) 0.1 x10^3/uL (0.0-0.2) Maternal Serum HCG Beta Subunit 4872 mIU/mL (0-5) H Sodium Level 137 mmol/L (136-145) Potassium Level 3.1 mmol/L (3.5-5.1) L Chloride Level 104 mmol/L (98-107) Carbon Dioxide Level 20 mmol/L (21-32) L Anion Gap 13 (6-14) Blood Urea Nitrogen 10 mg/dL (7-20) Creatinine 0.8 mg/dL (0.6-1.0) Estimated GFR (Cockcroft-Gault) 80.3 BUN/Creatinine Ratio 13 (6-20) Glucose Level 184 mg/dL (70-99) H Calcium Level 8.6 mg/dL (8.5-10.1) Total Bilirubin 0.4 mg/dL (0.2-1.0) Aspartate Amino Transferase (AST) 19 U/L (15-37) Alanine Aminotransferase (ALT) 15 U/L (14-59) Alkaline Phosphatase 43 U/L (46-116) L Total Protein 6.8 g/dL (6.4-8.2) Albumin 3.4 g/dL (3.4-5.0) Albumin/Globulin Ratio 1.0 (1.0-1.7) Laboratory Tests 04/18/20 00:20 04/18/20 05:49 Laboratory Tests 04/18/20 00:20 ASSESSMENT & PLAN A&P 39 yrs old lady admitted for with Bleeding. Vital signs stable. First trimester . Could not get a good history due to Language Barrier. Pelvic exam shows Cervix still open. Bleeding Brisk. Possible retained placental tissues. Explained to the Family about Incomplete and Patient needs D&C Suction Curettage. Patient willing for Surgery. Hb 6.6 Receiving BT now. Will proceed with Surgery. Justifications for Admission Other Justification LUCIA LANGSTON MD Apr 18, 2020 10:34
--- NOTE | 2020-04-18 10:44 | HP ---
ADMIT DATE: 04/18/2020 CHIEF COMPLAINT AND HISTORY OF PRESENT ILLNESS: This patient is a 39-year-old female, who is 9, para 8, came into the Emergency Room because of with excessive bleeding and passing clots. The patient was seen by ER physician and the patient was admitted through the ER because of with bleeding associated with abdominal cramps and for further treatment. PHYSICAL EXAMINATION: VITAL SIGNS: Being stable. HEAD, EYES, NOSE, THROAT: Within normal limits. LUNGS: Clear. HEART: Sounds regular sinus rhythm. ABDOMEN: Soft, tenderness in the pelvic area. PELVIC: Shows external genitalia being normal and the cervical external os is open. On bimanual exam, uterus feels tender, no adnexal masses are felt. There is brisk bleeding with the pelvic exam and also the patient has passed the clots. Her hemoglobin has been 6.6 this morning. Two units of blood transfusions will be given at this time. DIAGNOSES: 9, para 8; incomplete . PLAN: D and C, suction curettage. The above surgical procedure has been explained to the patient through the state pilot because of the language barrier problem. The patient is willing for the operation at the present time. LUCIA LANGSTON MD DR: TERESA/christina JOB#: [id number] / [id number]
[2020-04-18] MEDS ORDERED: fentaNYL PF VIAL 100 MCG/2 ML VIAL IV PRN ×2 (10:45)
[2020-04-18] MEDS ORDERED: LIDOCAINE 1% PF 2 ML VIAL. ID PRN (10:45)
[2020-04-18] MEDS ORDERED: HYDROmorphone 2 MG/ML VIAL IV PRN (10:45)
[2020-04-18] MEDS ORDERED: IV RINGERS,LACTATED 1000ML 1,000 ML IV SCH (10:45)
[2020-04-18] MEDS ORDERED: PROCHLORPERAZINE 10 MG/2 ML VIAL. IV PRN (10:45)
[2020-04-18] MEDS ORDERED: ONDANSETRON PF 4 MG/2 ML VIAL. ONE (11:24)
[2020-04-18] MEDS ORDERED: LIDOCAINE 2% PF 5 ML VIAL. ONE (11:24)
[2020-04-18] MEDS ORDERED: DEXAMETHASONE SOD PHOS 4 MG/ML VIAL ONE (11:24)
[2020-04-18] MEDS ORDERED: PROPOFOL 10 MG/ML (20ML) VIAL. IV ONE (11:24)
[2020-04-18] MEDS ORDERED: miSOPROStol 200 MCG TABLET ONE ×5 (11:58→12:00)
[2020-04-18] MEDS ORDERED: OXYTOCIN 10 UNIT/ML VIAL. ONE ×2 (11:58→13:38)
[2020-04-18] MEDS ORDERED: ceFAZolin SODIUM IV Push 1 GM VIAL. IVP ONE (13:26)
[2020-04-18] MEDS ORDERED: SEVOFLURANE 31 TO 60 MINUTES. IH ONE (13:46)
[2020-04-18] MEDS ORDERED: PHENYLEPHRINE 10 MG/ML VIAL. ONE (13:46)
--- NOTE | 2020-04-18 13:56 | PDOC ---
GENERAL General: Patient scheduled for D&C suction Curettage. VITAL SIGNS Vital Signs/I&O: Vital Signs Date Time Temp Pulse Resp B/P (MAP) Pulse Ox O2 Delivery O2 Flow Rate FiO2 04/18/20 12:30 97.3 50 20 91/55 97.3 04/18/20 08:00 Room Air 16.0 04/18/20 07:23 96 I & O 04/17/20 04/17/20 04/18/20 15:00 23:00 07:00 Intake Total 1000 ml Balance 1000 ml ALLERGIES Allergies: Allergies Coded Allergies Type Severity Reaction Last Updated Verified No Known Drug Allergies 07/03/19 No MEDS Medications: Current Medications Medications (Trade) Dose Ordered Sig/Jena Route PRN Reason Start Time Stop Time Status Last Admin Dose Admin Sodium Chloride 1,000 ml @ 1,000 mls/hr 1X ONCE IV 04/18/20 01:00 04/18/20 01:59 DC 04/18/20 00:38 Sodium Chloride 1,000 ml @ 1,000 mls/hr 1X ONCE IV 04/18/20 03:15 04/18/20 04:14 DC 04/18/20 03:00 LAB Lab: Laboratory Tests Test 04/18/20 00:20 04/18/20 05:49 04/18/20 12:00 White Blood Count 10.1 x10^3/uL (4.0-11.0) 13.4 x10^3/uL (4.0-11.0) H Red Blood Count 3.15 x10^6/uL (3.50-5.40) L 2.20 x10^6/uL (3.50-5.40) L Hemoglobin 9.5 g/dL (12.0-15.5) L 6.6 g/dL (12.0-15.5) *L Hematocrit 28.6 % (36.0-47.0) L 19.8 % (36.0-47.0) *L Mean Corpuscular Volume 91 fL (79-100) 90 fL (79-100) Mean Corpuscular Hemoglobin 30 pg (25-35) 30 pg (25-35) Mean Corpuscular Hemoglobin Concent 33 g/dL (31-37) 33 g/dL (31-37) Red Cell Distribution Width 13.9 % (11.5-14.5) 13.8 % (11.5-14.5) Platelet Count 228 x10^3/uL (140-400) 163 x10^3/uL (140-400) Neutrophils (%) (Auto) 62 % (31-73) Lymphocytes (%) (Auto) 26 % (24-48) Monocytes (%) (Auto) 8 % (0-9) Eosinophils (%) (Auto) 4 % (0-3) H Basophils (%) (Auto) 1 % (0-3) Neutrophils # (Auto) 6.2 x10^3/uL (1.8-7.7) Lymphocytes # (Auto) 2.7 x10^3/uL (1.0-4.8) Monocytes # (Auto) 0.8 x10^3/uL (0.0-1.1) Eosinophils # (Auto) 0.4 x10^3/uL (0.0-0.7) Basophils # (Auto) 0.1 x10^3/uL (0.0-0.2) Maternal Serum HCG Beta Subunit 4872 mIU/mL (0-5) H Sodium Level 137 mmol/L (136-145) Potassium Level 3.1 mmol/L (3.5-5.1) L Chloride Level 104 mmol/L (98-107) Carbon Dioxide Level 20 mmol/L (21-32) L Anion Gap 13 (6-14) Blood Urea Nitrogen 10 mg/dL (7-20) Creatinine 0.8 mg/dL (0.6-1.0) Estimated GFR (Cockcroft-Gault) 80.3 BUN/Creatinine Ratio 13 (6-20) Glucose Level 184 mg/dL (70-99) H Calcium Level 8.6 mg/dL (8.5-10.1) Total Bilirubin 0.4 mg/dL (0.2-1.0) Aspartate Amino Transferase (AST) 19 U/L (15-37) Alanine Aminotransferase (ALT) 15 U/L (14-59) Alkaline Phosphatase 43 U/L (46-116) L Total Protein 6.8 g/dL (6.4-8.2) Albumin 3.4 g/dL (3.4-5.0) Albumin/Globulin Ratio 1.0 (1.0-1.7) SARS-CoV-2 Antigen (Rapid) Negative (NEGATIVE) Laboratory Tests 04/18/20 00:20 04/18/20 05:49 Laboratory Tests 04/18/20 00:20 ASSESSMENT & PLAN A&P Under GA D&C Suction Curettage done. EBL 300 cc. Patien received 2 units of BT . Justifications for Admission Other Justification LUCIA LANGSTON MD Apr 18, 2020 13:56
--- NOTE | 2020-04-18 14:19 | OP ---
DATE OF SURGERY: PREOPERATIVE DIAGNOSIS: Incomplete . POSTOPERATIVE DIAGNOSIS: Incomplete . OPERATION PERFORMED: D and C, suction curettage. DESCRIPTION OF PROCEDURE: The patient was taken to the operating room under general anesthesia. She was placed in a dorsal lithotomy position. Perineum was prepped and draped in the usual manner. She did receive antibiotics in the operating room. Weighted speculum was inserted in the posterior vaginal wall. Anterior lip of the cervix held with a tenaculum and the cervix was already dilated and there were tissues protruding from the os. These were all removed with the ring forceps. Then, since cervix was already dilated, a size 7 suction tip was used to suction the uterus. All the retained tissues were removed and subjected for pathological examination. Medium sized curette was used to curette the endometrial cavity as well as a suction curettage was done. She did receive 20 units of Pitocin during the time of the procedure. Also Cytotec was inserted into the uterus at the end of the D and C for better hemostasis, and the patient was sent to the recovery room in good condition. No complications encountered at time of the procedure. Estimated blood loss about 300 mL. Postoperative condition is stable. The patient tolerated the procedure well. No complications at this time. LUCIA LANGSTNO MD DR: TERESA/christina JOB#: [id number] / [id number]
[2020-04-18 15:14] LABS: HEMATOCRIT 30.2 % (36.0-47.0); HEMOGLOBIN 9.9 g/dL (12.0-15.5); RED BLOOD COUNT 3.32 x10^6/uL (3.50-5.40); RED CELL DISTRIBUTION WIDTH 14.3 % (11.5-14.5); WHITE BLOOD COUNT 11.7 x10^3/uL (4.0-11.0)
--- NOTE | 2020-04-22 10:07 | NUR ---
IP: Informed pt of positive COVID test. Is a language barrier but verbalized understanding.
== END 2020-04-18 19:30 | disposition home or self-care (01) ==
LOC: ER 00:05 → 3 NORTH 03:45
PROVIDERS: ADMIT Obstetrics & Gynecology; ATTEND Obstetrics & Gynecology
DX: O98.511 Other viral diseases complicating pregnancy, first trimester (principal); U07.1 COVID-19; O03.4 Incomplete spontaneous abortion without complication; Z3A.00 Weeks of gestation of pregnancy not specified
CPT/HCPCS: 36415; 36430; 59812; 76801; 80053; 84702; 85025; 85027; 86850; 86900; 86901; 86920; 87426; 96360; 96361; G0378; G0379; J0690; J1100; J2370; J2405; J2590; J2704; J7030; P9016; U0003; J7120

== ENCOUNTER 2020-05-25 18:31 | Emergency (ER) | payer MEDICAID, OTHER ==
[~2020-05-25] VITALS: Ht 157.5 cm; Wt 55.5 kg
[2020-05-25 18:53] LABS: BILIRUBIN,URINE NEGATIVE (NEG); CLARITY,URINE CLEAR; COLOR,URINE YELLOW; NITRITE,URINE NEGATIVE (NEG); PH,URINE 5.5 (<5.0-8.0); PROTEIN,URINE NEGATIVE (NEG-TRACE); UROBILINOGEN,URINE 0.2 mg/dL (0.2 mg/dL)
[2020-05-25 19:00] LABS: AMPHETAMINE/METHAMPHETAMINE NEG (NEG); BACTERIA,URINE MODERATE /HPF (0-FEW); BARBITURATES NEG (NEG); BENZODIAZEPINES NEG (NEG); CANNABINOIDS NEG (NEG); COCAINE NEG (NEG); METHADONE NEG (NEG); OPIATES NEG (NEG); PHENCYCLIDINE NEG (NEG)
[2020-05-25 19:02] LABS: RBC,URINE 0 /HPF (0-2); WBC,URINE 0 /HPF (0-4)
--- NOTE | 2020-05-25 19:05 | RAD ---
AP chest. HISTORY: Palpitations AP view was taken of the chest. Lungs are clear. Heart is normal in size. There is no effusion. IMPRESSION: 1. No acute chest disease. Electronically signed by: Liang Keys MD (05/25/2020 7:03 PM) [facility] [place]
--- NOTE | 2020-05-25 19:09 | PHYS DOC ---
Past Medical History Past Medical History: No Pertinent History Past Surgical History: No Surgical History Smoking Status: Never Smoker Alcohol Use: None General Adult EDM: Chief Complaint: Palpitations HPI: HPI: 40 yo F PMH matteo (+ 04/18/20) presents to the ED with complaints of "my heart is pounding," associated lack of energy, feeling tired and "I can't breath well today," with associated sharp, nonradiating sternal chest discomfort x 5 hours. 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 Patient denies any tobacco use, alcohol or IV drug use. Follows up in outpatient clinic but takes no routine medications. EMR was reviewed and patient had D&C for incomplete in March 2020, covid test positive at that time. Review of Systems: Review of Systems: Constitutional: Denies fever or chills. [] Eyes: Denies change in visual acuity. [] HENT: Denies nasal congestion or sore throat. [] Respiratory: Denies cough or increased work of breathing or hemoptysis Cardiovascular: Denies ayncope or edema. [] GI: Denies abdominal pain, nausea, vomiting, bloody stools or diarrhea. [] : Denies dysuria. [] Musculoskeletal: Denies back pain or joint pain. [] Integument: Denies rash. [] Neurologic: Denies headache, focal weakness or sensory changes. [] Endocrine: Denies polyuria or polydipsia. [] Lymphatic: Denies swollen glands. [] Psychiatric: Denies depression or anxiety. [] Heart Score: HEART Score for Chest Pain: HEART Score for Chest Pain Response (Comments) Value History Slighlty/Non-Suspicious 0 ECG Normal 0 Age < 45 0 Risk Factors No Risk Factors 0 Troponin < Normal Limit 0 Total 0 Risk Factors: Risk Factors: DM, Current or recent (<one month) smoker, HTN, HLP, family history of CAD, obesity. Risk Scores: Score 0 - 3: 2.5% MACE over next 6 weeks - Discharge Home Score 4 - 6: 20.3% MACE over next 6 weeks - Admit for Clinical Observation Score 7 - 10: 72.7% MACE over next 6 weeks - Early Invasive Strategies Allergies: Allergies: Allergies Coded Allergies Type Severity Reaction Last Updated Verified No Known Drug Allergies 07/03/19 No Physical Exam: PE: Constitutional: Well developed, well nourished, non-toxic appearance, thin/healthy/in no distress HENT: Normocephalic, atraumatic, Eyes: EOMI, conjunctiva normal, no discharge. Neck: Normal range of motion, supple, Cardiovascular: S1/2 present, bradycardic Lungs & Thorax: Speaking in full sentences, bilateral equal chest rise, no tachypnea or increased work of breathing Abdomen: soft, no tenderness, Skin: Warm, dry, no erythema, no rash. [] Back: No midline tenderness, no CVA tenderness. [] Extremities: No tenderness, no cyanosis, no unilateral le edema Neurologic: Alert and oriented X 3, normal motor function, normal sensory fun ction, no focal deficits noted. [] Psychologic: Affect normal, judgement normal, mood normal. [] Current Patient Data: Labs: Laboratory Tests Test 05/25/20 18:40 05/25/20 18:48 Urine Collection Type Unknown Urine Color Yellow Urine Clarity Clear Urine pH 5.5 (<5.0-8.0) Urine Specific [place] 1.010 (1.000-1.030) Urine Protein Negative mg/dL (NEG-TRACE) Urine Glucose (UA) Negative mg/dL (NEG) Urine Ketones (Stick) Negative mg/dL (NEG) Urine Blood Trace (NEG) Urine Nitrite Negative (NEG) Urine Bilirubin Negative (NEG) Urine Urobilinogen Dipstick 0.2 mg/dL (0.2 mg/dL) Urine Leukocyte Esterase Negative (NEG) Urine RBC 0 /HPF (0-2) Urine WBC 0 /HPF (0-4) Urine Squamous Epithelial Cells Mod /LPF Urine Bacteria Moderate /HPF (0-FEW) Urine Opiates Screen Neg (NEG) Urine Methadone Screen Neg (NEG) Urine Barbiturates Neg (NEG) Urine Phencyclidine Screen Neg (NEG) Urine Amphetamine/Methamphetamine Neg (NEG) Urine Benzodiazepines Screen Neg (NEG) Urine Cocaine Screen Neg (NEG) Urine Cannabinoids Screen Neg (NEG) Urine Ethyl Alcohol Neg (NEG) POC Urine HCG, Qualitative Hcg negative (Negative) Vital Signs: Vital Signs Date Time Temp Pulse Resp B/P (MAP) Pulse Ox O2 Delivery O2 Flow Rate FiO2 05/25/20 18:50 98.0 46 16 129/72 (91) 98 Room Air 98.0 EKG: EKG: Sinus bradycardia at 44 bpm, no axis deviation, normal intervals, T wave inversion V2 and V3, no ST elevation or ST depressions, no pathologic Q waves Radiology/Procedures: Radiology/Procedures: IMAGING REPORT Signed PATIENT: AZAR JAVIER ACCOUNT: [id number] : 1980 LOCATION: ER AGE: 40 SEX: F EXAM STATUS: REG ER ORD. PHYSICIAN: KRISH STONE DO REASON: palpitations PROCEDURE: PORTABLE CHEST 1V AP chest. HISTORY: Palpitations AP view was taken of the chest. Lungs are clear. Heart is normal in size. There is no effusion. IMPRESSION: 1. No acute chest disease. Electronically signed by: Liang Keys MD (05/25/2020 7:03 PM) [facility] DICTATED and SIGNED BY: LIANG KEYS MD DATE: 05/25/20 [id number] IMAGING REPORT Signed PATIENT: AZAR JAVIER ACCOUNT: [id number] : 1980 LOCATION: ER AGE: 40 SEX: F EXAM STATUS: REG ER ORD. PHYSICIAN: KRISH STONE DO REASON: soa, r/o pe, OMNI 350, 100 ML IV PROCEDURE: CT ANGIOGRAPHY CHEST Exam: CT of chest with contrast INDICATION: Short of air TECHNIQUE: Sequential axial images through the chest obtained following the administration 100 mL of Omni 350 IV contrast. Sagittal and coronal reformatted images were reconstructed from the axial data and reviewed. 3-D reformatted images were reconstructed from the axial data and reviewed. Comparisons: None FINDINGS: Visualized portions of the thyroid are unremarkable. No enlarged mediastinal lymph nodes are identified. Heart size is normal. No pericardial effusion. Thoracic aorta has a normal course and caliber. Pulmonary artery is not enlarged. No pulmonary embolus [place] ntified within the main, lobar or segmental pulmonary arteries. Airways are patent. No consolidation or pneumothorax. No suspicious lung nodules. No pleural effusion. Visualized upper abdomen is unremarkable. No suspicious osseous lesions or acute fractures. IMPRESSION: No pulmonary embolus identified within the main, lobar or segmental pulmonary arteries. Exposure: One or more of the following in the visualized dose reduction techniques were utilized for this examination: 1. Automated exposure control 2. Adjustment of the MA and/or KV according to patient size 3. Use of iterative of reconstructive technique Electronically signed by: Jimi Orlando MD (05/25/2020 8:47 PM) [facility] DICTATED and SIGNED BY: JIMI ORLANDO MD DATE: 05/25/[id number] 0 Course & Med Decision Making: Course & Med Decision Making Pertinent Labs and Imaging studies reviewed. (See chart for details) Concern for heart palpitations described as "heart pounding." EKG with sinus bradycardia. EMR was reviewed in March 2020 and her heart rate was 56 and 53 bpm. In July 2019 her heart rate was 68 and 48 bpm. Troponin x2, tsh and CK in normal range. Drug screen negative. Urinalysis contaminated. D-dimer slightly elevated at 0.52. CTA with no pe or infiltrate, normal heart size and normal caliber of thoracic aorta. Low risk for MACE. No events on clinical research monitor while being observed in the ED. Will discharge home with strict ED return precautions were given for syncope, fever, dehydration, chest pain, neurologic deficits or increased work of breathing. Encouraged urgent outpatient follow-up with PMD and cardiology as an outpatient. Life-threatening processes were considered but are low suspicion at this time, given history, physical exam and ED workup. Pt was educated on all prescription medications and adverse effects. All patient's questions were answered and pt was stable at time of discharge. Life/limb-threatening differential includes but is not limited to, acute myocardial infarction, aortic dissection, congestive heart failure, esophageal injury including rupture, surgical abdomen, arrhythmia, cardiomyopathy, myocarditis, pericarditis, peptic ulcer disease, pneumomediastinum, pneumonia, pneumothorax, pulmonary embolus, unstable angina, rib fracture, contusion, pericardial tamponade or effusion, traumatic injury including mediastinal hemorrhage or hematoma, or pulmonary contusion. I spoken with the patient and her caregivers. I explained the patient's condition, diagnoses and treatment plan based on the information available to me at this time. I have answered the patient and her caregiver's questions and addressed any concerns. The patient and her caregivers have a good understanding of patient's diagnosis, condition and treatment plan as can be expected at this point. Vital signs have been stable. Patient's condition is stable and appropriate for discharge from the emergency department. Patient will pursue further outpatient evaluation with primary care physician or other designated or consulting physician as outlined in the discharge instructions. The patient and/or caregivers are agreeable to this plan of care and follow-up instructions have been explained in detail. The patient and/or caregivers have received these instructions in written form and have expressed an understanding of the discharge instructions. The patient and/or caregivers are aware that any significant change of condition or worsening of symptoms should prompt immediate return to this or the closest emergency department or call to 911. Viv Disclaimer: [place] Disclaimer: This electronic medical record was generated, in whole or in part, using a voice recognition dictation system. Departure Departure Impression: Primary Impression: Sinus bradycardia Additional Impressions: History of COVID-19 Elevated d-dimer Normal computed tomography angiography (CTA) Disposition: 01 DC HOME SELF CARE/HOMELESS Condition: STABLE Referrals: NO PCP (PCP) FOLLOW UP WITH FAMILY MEDICINE: Family Medicine Address: [address] [place] [address] Patient Instructions: Bradycardia, Palpitations Additional Instructions: FOLLOW UP WITH CARDIOLOGY: [facility] Address: [address] [place] [address] EMERGENCY DEPARTMENT GENERAL DISCHARGE INSTRUCTIONS Thank you for coming to [facility] Emergency Department (ED) today and trusting us with you care. We trust that you had a positive experience in our Emergency Department. If you wish to speak to the department management, you may call the Director at [phone]. YOUR FOLLOW UP INSTRUCTIONS ARE FOLLOWS: 1. Do you have a private Doctor? If you do not have a private doctor, please ask for a resource list of physicians or clinics that may be able to assist you with follow up care. 2. The Emergency Physicain has interpreted your x-rays. The X-Ray specialist will also review them. If there is a change in the findings, you will be notified in 48 hours when at all possible. 3. A lab test or culture has been done, your results will be reviewed and you will be notified if you need a change in treatment. ADDITIONAL INSTRUCTIONS AND INFORMATION: 1. Your care today has been supervised by a physician who is specially trained in emergency care. Many problems require more than one evaluation for a complete diagnosis and treatment. We recommend that you schedule your follow up appointment as recommended to ensure complete treatment of you illness or injury. If you are unable to obtain follow up care and continue to have a problem, or if your condition worsens, we recommend that you return to the ED. 2. We are not able to safely determine your condition over the phone nor are we able to give sound medical advice over the phone. For these safety reasons, if you call for medical advice we will ask you to come to the ED for further evaluation. 3. If you have any questions regarding these discharge instructions please call the ED at [phone]. SAFETY INFORMATION: In the interest of safety, wellness, and injury prevention; we encourage you to wear your sealbelt, if you smoke; quite smoking, and we encourage family to use a protective helmet for bicycling and other sporting events that present an increased risk for head injury. IF YOUR SYMPTOMS WORSEN OR NEW SYMPTOMS DEVELOP, OR YOU HAVE CONCERNS ABOUT YOUR CONDITION; OR IF YOUR CONDITION WORSENS WHILE YOU ARE WAITING FOR YOUR FOLLOW UP APPOINTMENT; EITHER CONTACT YOUR PRIMARY CARE DOCTOR, THE PHYSICIAN WHOSE NAME AND NUMBER YOU WERE GIVEN, OR RETURN TO THE ED IMMEDIATELY. Scripts No Active Prescriptions or Reported Meds KRISH STONE DO May 25, 2020 19:09
[2020-05-25 19:11] LABS: BASO % 0 % (0-3); EOS # 0.3 x10^3/uL (0.0-0.7); EOS % 3 % (0-3); HEMOGLOBIN 12.9 g/dL (12.0-15.5); LYMPH # 1.3 x10^3/uL (1.0-4.8); LYMPH % 12 % (24-48); MEAN CORPUSCULAR HEMOGLOBIN 31 pg (25-35); MEAN CORPUSCULAR HGB CONC 33 g/dL (31-37); MEAN CORPUSCULAR VOLUME 92 fL (79-100); MONO # 0.5 x10^3/uL (0.0-1.1); MONO % 5 % (0-9); NEUT # 9.2 x10^3/uL (1.8-7.7); NEUT % 81 % (31-73); PLATELET COUNT 248 x10^3/uL (140-400); RED BLOOD COUNT 4.24 x10^6/uL (3.50-5.40); RED CELL DISTRIBUTION WIDTH 14.4 % (11.5-14.5); WHITE BLOOD COUNT 11.4 x10^3/uL (4.0-11.0)
[2020-05-25 19:23] LABS: CALCIUM 9.6 mg/dL (8.5-10.1); CREATININE 0.7 mg/dL (0.6-1.0); GFR 93.2; POTASSIUM 3.6 mmol/L (3.5-5.1)
[2020-05-25 19:27] LABS: MAGNESIUM 1.8 mg/dL (1.8-2.4); TOTAL BILIRUBIN 0.3 mg/dL (0.2-1.0); TOTAL PROTEIN 7.9 g/dL (6.4-8.2)
[2020-05-25] MEDS ORDERED: CONTRAST GIVEN. MC PRN (20:30)
[2020-05-25] MEDS ORDERED: IOHEXOL 350 MG/ML 100 ML VIAL. IV ONE (20:30)
[2020-05-25] MEDS ORDERED: KETOROLAC 15 MG/ML VIAL. IVP ONE (20:30)
--- NOTE | 2020-05-25 20:49 | RAD ---
Exam: CT of chest with contrast INDICATION: Short of air TECHNIQUE: Sequential axial images through the chest obtained following the administration 100 mL of Omni 350 IV contrast. Sagittal and coronal reformatted images were reconstructed from the axial data and reviewed. 3-D reformatted images were reconstructed from the axial data and reviewed. Comparisons: None FINDINGS: Visualized portions of the thyroid are unremarkable. No enlarged mediastinal lymph nodes are identifi ed. Heart size is normal. No pericardial effusion. Thoracic aorta has a normal course and caliber. Pulmon juan artery is not enlarged. No pulmonary embolus identified within the main, lobar or segmental pulmo nary arteries. Airways are patent. No consolidation or pneumothorax. No suspicious lung nodules. No pleural effusion. Visualized upper abdomen is unremarkable. No suspicious osseous lesions or acute fractures. IMPRESSION: No pulmonary embolus identified within the main, lobar or segmental pulmonary arteries. Exposure: One or more of the following in the visualized dose reduction techniques were utilized for this examination: 1. Automated exposure control 2. Adjustment of the MA and/or KV according to patient size 3. Use of iterative of reconstructive technique Electronically signed by: Jimi Kwok MD (05/25/2020 8:47 PM) [facility]
[2020-05-25] MEDS ORDERED: LIDO:MAALOX 1:1 20 ML SINGLE DOSE. SWSW ONE (21:30)
[2020-05-25 22:40] VITALS: BP 121/77
--- NOTE | 2020-05-27 12:01 | EKG ---
[facility] [address] [place] [address] Test Date: 2020-05-25 Test Time: 18:50:46 Pat Name: AZAR JAVIER Department: Room: Gender: F [employer]: : 1980 Requested By: KRISH STONE Order Number: [id number] Reading MD: Alirio Quintero Measurements Intervals [place] Rate: 44 P: 38 NV: 178 QRS: 20 QRSD: 74 T: 35 QT: 414 QTc: 354 Interpretive Statements SINUS BRADYCARDIA Electronically Signed On 05-28-2020 9:48:24 MOBILE HOME SET UP PERSON by Alirio Quintero
== END 2020-05-25 23:30 | disposition home or self-care (01) ==
LOC: ER 18:31
DX: R00.1 Bradycardia, unspecified (principal); Z86.16 Personal history of COVID-19; R79.89 Other specified abnormal findings of blood chemistry
CPT/HCPCS: 36415; 71045; 71275; 80053; 80307; 81001; 81025; 82550; 83690; 83735; 84443; 84484; 85025; 85379; 87086; 93005; 96374; 99285; J1885; Q9967

== ENCOUNTER 2020-12-28 09:55 | Observation (INO) | payer SELFPAY ==
[2020-12-28 11:34] LABS: BILIRUBIN,URINE NEGATIVE (NEG); CLARITY,URINE CLEAR; COLOR,URINE YELLOW; NITRITE,URINE NEGATIVE (NEG); PH,URINE 6.5 (<5.0-8.0); PROTEIN,URINE NEGATIVE (NEG-TRACE); UROBILINOGEN,URINE 0.2 mg/dL (0.2 mg/dL)
[2020-12-28 12:15] LABS: BACTERIA,URINE 0 /HPF (0-FEW); RBC,URINE 0 /HPF (0-2); WBC,URINE OCC /HPF (0-4)
--- NOTE | 2020-12-28 13:18 | RAD ---
Obstetrical ultrasound on 2020. Reason for exam: Check size and dates. No care. FINDINGS: A living intrauterine fetus is demonstrated and was in breech position at the time of scann ing. Heart rate measured 150 bpm. The placenta is seen anteriorly and does not approach the cervical os. Cervical length is about 7 cm. Amniotic fluid volume appears appropriate. A three-vessel umbilica l cord is seen and appears to insert normally. The head, heart, spine and abdomen appear normal as well as can be determined. Evaluation was slightly limited by body habitus. The following age est imates were obtained: BPD: 24 weeks 0 days HC: 24 weeks 4 days AC: 25 weeks 0 days FL: 24 weeks 4 days. Composite ultrasound estimated is 24 weeks 4 days, giving MARY of 04/15/2021. IMPRESSION: There is a normal-appearing living intrauterine fetus with estimated age by ultrasound me asurements of 24 weeks 4 days. Electronically signed by: Jose L Fritz Jr., MD (12/28/2020 1:16 PM) [id number]
== END 2020-12-28 13:10 | disposition home or self-care (01) ==
LOC: 3 SO LND 09:55
PROVIDERS: ADMIT Obstetrics & Gynecology; ATTEND Obstetrics & Gynecology
DX: O99.891 Other specified diseases and conditions complicating pregnancy (principal); M54.9 Dorsalgia, unspecified; O26.892 Other specified pregnancy related conditions, second trimester; R10.30 Lower abdominal pain, unspecified; R42 Dizziness and giddiness; Z3A.24 24 weeks gestation of pregnancy
CPT/HCPCS: 59025; 76805; 81001; G0378; G0379